=== PATIENT | female | born 1930 | race Caucasian/White ===

== ENCOUNTER 2018-12-11 17:30 | Emergency (ER) | payer OTHER ==
[~2018-12-11] VITALS: Ht 152.4 cm; Wt 61.7 kg
[~2018-12-11 17:30] MED LIST: ASPI-630 PO; LEVO75TA5 PO; LISI-338 PO; LOVA40TA2 PO; MIRA25TA PO; OMEP20TA8 PO; SENN-22 PO; SOLI10TA2 PO; TRIA1CAP3 PO
--- NOTE | 2018-12-11 19:20 | PHYS DOC ---
Past Medical History Past Medical History: Hypertension Past Surgical History: Appendectomy, Cholecystectomy, Hysterectomy, Tonsillectomy Additional Past Surgical Histo: breast biospy, toe and feet surgery Alcohol Use: None Drug Use: None Adult General Chief Complaint Chief Complaint: MECHANICAL FALL HPI HPI Patient is an 88 yo female who presents with daughter and grandson following witnessed mechanical fall. Patient and daughter report the patient moved into a smaller apartment a week ago and was navigating around a corner with her walker when patient tripped over daughter's feet. Patient fell from standing and hit her head on the corner of a table. Daughter witnessed the fall and confirms the patient did not lose consciousness. The family reports the patient was able to stand and walk following the event, however they decided to bring the patient to the ED. Patient denies experiencing dizziness, shortness of breath, or chest pain prior to fall. Patient reports she is not on blood thinners and denies experiencing any pain anywhere. She reports she has HTN and took her BP medication today, but is otherwise in good health. She uses a walker because she is unstable on her feet as a result of R foot surgery several years prior. Patient denies smoking, etoh, or drug use. Patient's PCP is Dr. Santana Review of Systems Review of Systems Constitutional: Denies fever or chills [] Eyes: Denies change in visual acuity, redness, or eye pain [] HENT: Denies nasal congestion or sore throat [] Respiratory: Denies cough or shortness of breath [] Cardiovascular: Denies chest pain or palpitation GI: Denies abdominal pain, nausea, vomiting, bloody stools or diarrhea [] : Denies dysuria or hematuria [] Musculoskeletal: Denies back pain or joint pain [] Integument: Denies rash. Admits "rug burn" on L knee from fall. Neurologic: Denies headache, focal weakness or sensory changes [] All other systems were reviewed and found to be within normal limits, except as documented in this note. Current Medications Current Medications Current Medications Medications (Trade) Dose Ordered Sig/Virgilio Start Time Stop Time Status Last Admin Dose Admin Diphtheria/ Tetanus/Acell Pertussis (Boostrix) 0.5 ml ONCE ONCE 12/11/18 19:30 12/11/18 19:31 DC 12/11/18 19:42 0.5 ML Allergies Allergies Allergies Coded Allergies Type Severity Reaction Last Updated Verified Estrogens Allergy Intermediate RASH 10/31/17 Yes Physical Exam Physical Exam Constitutional: Well developed, well nourished, no acute distress, non-toxic appearance. [] HENT: Normocephalic, atraumatic, bilateral external ears normal, oropharynx moist, no oral exudates, nose normal. [] Eyes: PERRLA, EOMI, conjunctiva normal, no discharge. [] Neck: Normal range of motion, no tenderness. Cardiovascular:Heart rate regular rhythm, no murmur [] Lungs & Thorax: Bilateral breath sounds clear to auscultation [] Abdomen:Soft, nontender. Skin: Warm, dry, no erythema, small abrasion on L frontal region of head just lateral to midline. Small abrasion anterior aspect L knee. No lacerations, bruising, or skin tears appreciated. Back: No tenderness, moderate kyphosis present. Extremities: No tenderness, no cyanosis, no clubbing, ROM intact, no edema. [] Neurologic: Alert and oriented X 3, face symmetric, speech clear, No past pointing on finger to nose exam. dermatomal sensation of face, upper extremity, lower extremities equal bilaterally. normal motor function, normal sensory function, 5/5 muscle strength UE/LE, no focal deficits noted. [] Psychologic: Affect normal, judgement normal, mood normal. [] Current Patient Data Vital Signs Vital Signs Date Time Temp Pulse Resp B/P (MAP) Pulse Ox O2 Delivery O2 Flow Rate FiO2 12/11/18 20:00 64 16 96 12/11/18 18:21 98.7 175/81 (112) Room Air 98.7 EKG EKG [] Radiology/Procedures Radiology/Procedures [PROCEDURE: CT HEAD WO CONTRAST CT head without contrast TECHNIQUE: 5 mm axial noncontrast imaging skull base to vertex. HISTORY: Patient fell and hit top of head, trauma. 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 Mild generalized brain atrophy. 1 cm hypoattenuating lesion left frontal lobe white matter above the lateral ventricle stable to the study from 2015 likely a chronic ischemic or demyelinating injury. 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 No new or acute infarct. No acute ischemic changes. No intracranial hemorrhage, mass or hydrocephalus. Imaged orbits, mastoids, paranasal sinuses and bones are unremarkable. IMPRESSION: No acute intracranial CT abnormality. Stable exam as described above. Electronically signed by: Kenneth Lion MD (12/11/2018 7:37 PM) [facility] DICTATED and SIGNED BY: KENNETH LION MD DATE: 12/11/181936 ] Course & Med Decision Making Course & Med Decision Making Patient is a pleasant 88 yo female who presents with daughter and grandson after witnessed mechanical fall at home without LOC. Patient not on blood thinners. Patient did hit her head on the corner of a table, and on physical exam she is hypertensive with small abrasion on L side of top of head and L knee. Remainder of physical exam, including complete neuro exam, unremarkable. Although patient initially declined noncon CT, she eventually agreed after discussing the risks and advantages of head CT today. CT unremarkable for acute intracranial abnormality. Discussed with patient that although she currently denies pain, should she develop pain she can take tylenol for symptomatic relief. Discussed with patient and family plan to DC home with instructions to follow up with PCP and to return if patient develops headache, lethargy, slurred speech, or weakness. Both patient and family verbalized understanding and agreement with plan. Dragon Disclaimer Dragon Disclaimer This electronic medical record was generated, in whole or in part, using a voice recognition dictation system. Departure Departure Impression: Primary Impression: Closed head injury Disposition: HOME, SELF-CARE Condition: STABLE Referrals: HARRY BHAGAT (PCP) LEORY ALEGRE MD Dec 11, 2018 19:20
[2018-12-11] MEDS ORDERED: DIPHTH,PERTUSS(ACELL),TET TOX 0.5 ML DISP.SYRIN. VAX IM ONE (19:30)
--- NOTE | 2018-12-11 19:40 | RAD ---
CT head without contrast TECHNIQUE: 5 mm axial noncontrast imaging skull base to vertex. HISTORY: Patient fell and hit top of head, trauma. 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 Mild generalized brain atrophy. 1 cm hypoattenuating lesion left frontal lobe white matter above the lateral ventricle stable to the study from 2015 likely a chronic ischemic or demyelinating injury. 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 No new or acute infarct. No acute ischemic changes. No intracranial hemorrhage, mass or hydrocephalus. Imaged orbits, mastoids, paranasal sinuses and bones are unremarkable. IMPRESSION: No acute intracranial CT abnormality. Stable exam as described above. Electronically signed by: Otoniel Lion MD (12/11/2018 7:37 PM) [facility]
[2018-12-11 20:00] VITALS: BP 168/58
== END 2018-12-11 20:31 | disposition home or self-care (01) ==
LOC: ER 17:30
DX: S00.81XA Abrasion of other part of head, initial encounter (principal); S80.212A Abrasion, left knee, initial encounter; I10 Essential (primary) hypertension; Z90.89 Acquired absence of other organs; Z90.49 Acquired absence of other specified parts of digestive tract; Z90.710 Acquired absence of both cervix and uterus; Z91.09 Other allergy status, other than to drugs and biological substances; W03.XXXA Other fall on same level due to collision with another person, initial encounter; Y93.89 Activity, other specified; Y92.89 Other specified places as the place of occurrence of the external cause; Y99.8 Other external cause status
CPT/HCPCS: 70450; 90471; 90715; 99284-25